=== PATIENT | female | born 1965 | race Caucasian/White ===

== ENCOUNTER 2021-09-02 06:29 | Day surgery (SDC) | payer MEDICAID ==
[2021-08-26 15:45] LABS: EOSINOPHILS # (AUTO) 0.1 X10'3 (0-0.9); EOSINOPHILS % (AUTO) 1.7 % (0-6); LYMPHOCYTES # (AUTO) 1.9 X10'3 (1.1-4.8); LYMPHOCYTES % (AUTO) 41.9 % (21-51); MEAN CORPUSCULAR HEMOGLOBIN 32.1 PG (27.0-31.0); MEAN CORPUSCULAR HGB CONC 34.7 g/dL (33.0-36.5); MEAN CORPUSCULAR VOLUME 92.5 FL (78-98); MEAN PLATELET VOLUME 8.6 FL (7.4-10.4); MONOCYTES # (AUTO) 0.4 X10'3 (0-0.9); MONOCYTES % (AUTO) 8.7 % (2-12); NEUTROPHILS # (AUTO) 2.1 X10'3 (1.8-7.7); NEUTROPHILS % (AUTO) 46.7 % (42-75); PRE OP HEMATOCRIT 40.5 % (35.0-45.0); PRE OP PLATELET COUNT 272 X10'3 (140-440); RED BLOOD COUNT 4.38 X10'6 (4.20-5.60); RED CELL DISTRIBUTION WIDTH 12.8 % (11.5-14.5)
[2021-08-26 15:57] LABS: PRE OP PROTIME 10.3 SECONDS (9.0-12.0)
[2021-08-26 16:07] LABS: ALBUMIN 3.5 G/DL (3.4-5.0); ALBUMIN/GLOBULIN RATIO 1.3 (1.1-1.5); ALKALINE PHOSPHATASE 69 IU/L (46-116); BLOOD UREA NITROGEN 12 MG/DL (7-18); BUN/CREATININE RATIO 13.2 (6.6-38.0); CALCIUM 6.7 MG/DL (8.5-10.1); CHLORIDE 108 MMOL/L (99-107); CREATININE 0.91 MG/DL (0.40-0.90); PRE OP ALT 29 U/L (30-65); PRE OP ANION GAP 11 (8-16); PRE OP AST 22 U/L (10-37); PRE OP BILIRUB, TOTAL 0.2 MG/DL (0.0-1.0); PRE OP GLUCOSE 87 MG/DL (70-104); PRE OP SODIUM 144 MMOL/L (135-145); TOTAL CARBON DIOXIDE 25.3 MMOL/L (24-32); TOTAL PROTEIN 6.1 G/DL (6.4-8.2); eGFR 65 ML/MIN
[2021-08-26 16:10] LABS: PRE OP POTASSIUM 4.1 MMOL/L (3.4-5.1)
[~2021-09-02] VITALS: Ht 162.6 cm; Wt 74.3 kg
[~2021-09-02 06:29] MED LIST: LEVO100T PO; cefazolin/dext.iso 2gm/50ml IV ONE; famotidine 20mg tablet PO ONE; ringers solution, lacted 1,000 ML IV SCH
[2021-09-02] MEDS ORDERED: BUPIVAcaine 0.5% inj/PF 30 ML ONE (06:49)
[2021-09-02 07:00] VITALS: BP 121/74
[2021-09-02] MEDS ORDERED: LIDOcaine 1% 30ml preserv. free vial ONE (07:28)
[2021-09-02] MEDS ORDERED: MIDAZolam 1 MG/ML 5ML VIAL ONE (08:52)
[2021-09-02] MEDS ORDERED: fentaNYL/PF 50MCG/1 ML 2ML syringe ONE (08:52)
[2021-09-02] MEDS ORDERED: BUPIVAcaine 0.5% inj/PF 30 ml vial IJ ONE (09:00)
[2021-09-02] MEDS ORDERED: ketorolac trometh. 30mg/ml inj. ONE (09:25)
[2021-09-02 09:43] VITALS: BP 117/64
--- NOTE | 2021-09-02 09:43 | NUR ---
Received from OR via , accompanied by Anesthesiologist DR RAMIREZ and report given by Anesthesiolgist. AWAKENS TO VOICE. VITALS STABLE. DRESSING DI. LYNN PAIN. FINGERS WARM AND PINK.
[2021-09-02 09:53] VITALS: BP 116/68
[2021-09-02 10:03] VITALS: BP 131/76
[2021-09-02 10:13] VITALS: BP 120/66
[2021-09-02] MEDS ORDERED: ondansetron/PF 4mg/2ml inj IM ONE (10:15)
--- NOTE | 2021-09-02 10:43 | NUR ---
AWAKE AND ORIENTED. VITALS STABLE. DRESSING DI. LYNN PAIN. HOME WITH HER SPOUSE AT THIS TIME.
== END 2021-09-02 10:43 | disposition home or self-care (01) ==
LOC: PAS 06:29
PROVIDERS: ATTEND Orthopaedic Surgery Hand Surgery
DX: G56.02 Carpal tunnel syndrome, left upper limb (principal); M65.4 Radial styloid tenosynovitis [de Quervain]; E03.9 Hypothyroidism, unspecified; Z20.822 Contact with and (suspected) exposure to COVID-19; Z79.01 Long term (current) use of anticoagulants; Z79.899 Other long term (current) drug therapy; Z91.040 Latex allergy status; Z87.891 Personal history of nicotine dependence; Z90.710 Acquired absence of both cervix and uterus; Z98.890 Other specified postprocedural states; Z85.21 Personal history of malignant neoplasm of larynx
CPT/HCPCS: 25000; 36415; 64721; 80053; 82948; 85025; 85610; 85730; 93005; A6222; J0690; J1885; J2250; J2405; J3010; J3490; J7030; J7120; S0020; U0003; U0005; Z7506; Z7512; A4215; A6449

== ENCOUNTER 2024-08-04 14:01 | Outpatient (CLI) | payer MEDICAID ==
[~2024-08-04 14:01] MED LIST changes: -cefazolin/dext.iso 2gm/50ml IV ONE; -famotidine 20mg tablet PO ONE; -ringers solution, lacted 1,000 ML IV SCH
== END 2024-08-04 23:59 | disposition home or self-care (01) ==
LOC: MRI02 14:01
PROVIDERS: ATTEND Pediatrics Sports Medicine
DX: M70.62 Trochanteric bursitis, left hip (principal); M76.02 Gluteal tendinitis, left hip; M46.1 Sacroiliitis, not elsewhere classified; M25.552 Pain in left hip
CPT/HCPCS: 73721